=== PATIENT | female | born 1935 | race Caucasian/White ===

== ENCOUNTER → 2018-01-04 | Outpatient (CLI) | DX: R59.0 Localized enlarged lymph nodes (principal) ==

== ENCOUNTER 2018-01-07 15:22 | Inpatient (IN) | END 2018-01-09 16:07 | DRG 641 | DX: E86.0 Dehydration (principal); N17.9 Acute kidney failure, unspecified; C50.911 Malignant neoplasm of unspecified site of right female breast; I10 Essential (primary) hypertension; G30.9 Alzheimer's disease, unspecified; F02.80 Dementia in other diseases classified elsewhere, unspecified severity, without behavioral disturbance, psychotic disturbance, mood disturbance, and anxiety; E03.9 Hypothyroidism, unspecified; R55 Syncope and collapse; E78.5 Hyperlipidemia, unspecified; W19.XXXA Unspecified fall, initial encounter; R01.1 Cardiac murmur, unspecified; Z66 Do not resuscitate; Z86.79 Personal history of other diseases of the circulatory system; Z90.710 Acquired absence of both cervix and uterus; Y92.091 Bathroom in other non-institutional residence as the place of occurrence of the external cause ==